=== PATIENT | male | born 1945 | race Caucasian/White ===

== ENCOUNTER 2016-10-18 07:57 | Day surgery (SDC) | payer MEDICARE ==
[2016-10-18] MEDS ORDERED: PROPOFOL 10 MG/ML VIAL IV ONE (15:10)
[2016-10-18] MEDS ORDERED: LIDOCAINE 2% MDV (20MG/ML) 20ML VIAL IV ONE (15:10)
[2016-10-18] MEDS ORDERED: MIDAZOLAM HCL 2MG/2ML VIAL IV ONE (15:10)
--- NOTE | 2016-10-19 18:10 | Operative Note ---
DATE OF SURGERY: 10/18/2016 OPERATION: COLONOSCOPY to the cecum with cold snare polypectomy x4. INDICATION: Colorectal cancer screening. The patient's last examination was 10 years ago. ANESTHESIA: Intravenous sedation was administered by the department of anesthesiology and included Diprivan titrated to effect. PROCEDURE: Following informed consent from this alert individual including a discussion of the risks and benefits of the procedure and an opportunity for the patient to ask questions, the patient was in the left lateral decubitus position. A digital rectal examination was performed. No abnormalities were noted. Following this, the Olympus [id number] video colonoscope was inserted into the rectum without resistance. The rectal mucosa had a normal appearance with normal folds and distensibility. The colonoscope was advanced up through the colon to the level of the cecum without much difficulty. Throughout the bowel the mucosa appeared normal, the folds were normal, and the bowel was fairly well distensible. The cecum was defined by noting the appendiceal orifice and ileocecal valve. In the cecum at the level of the ileocecal valve was a 5 mm polyp which was removed with cold snare polypectomy. A clip was placed as well to prevent bleeding. There was a second polyp in the transverse colon likewise measuring 5 mm in size also removed with cold snare polypectomy and retrieved. There were 2 polyps in the descending colon measuring 4 and 5 mm in size and each was removed with cold snare polypectomy and suctioned through the endoscope into a collection trap. No other abnormalities were detected. The colon preparation was good. Retroflexion of the rectum was endoscopically unremarkable. The endoscope was removed. The patient tolerated the procedure well and was returned to the recovery area in stable condition. IMPRESSION: Four colon polyps removed as described above with cold snare polypectomy. RECOMMENDATIONS: The patient was advised he should receive a copy of his pathology report at home in the next 2-3 weeks. If not, he was asked to call my office to review the results of testing today. Further recommendations may be forthcoming pending those results. Followup will also be with Dr. Kvng Aguayo. As always, thank you for allowing me to participate in the care of your patient. CC: Frandy SUTTON
== END 2016-10-18 09:43 | disposition home or self-care (01) ==
LOC: HOP 07:57
PROVIDERS: ATTEND Internal Medicine Gastroenterology
DX: Z12.11 Encounter for screening for malignant neoplasm of colon (principal); D12.0 Benign neoplasm of cecum; D12.3 Benign neoplasm of transverse colon; D12.4 Benign neoplasm of descending colon; I10 Essential (primary) hypertension; E78.00 Pure hypercholesterolemia, unspecified

== ENCOUNTER 2017-12-29 09:15 | Day surgery (SDC) | payer BC, MEDICARE ==
[2017-12-29] MEDS ORDERED: KETOROLAC 30 MG/ML VIAL IVP ONE (09:16)
[2017-12-29] MEDS ORDERED: FENTANYL PF 100MCG/2ML VIAL IV ONE (09:16)
[2017-12-29] MEDS ORDERED: CEFAZOLIN 2 Gram 2 GM/50 ML BAG IVPB ONE (09:16)
[2017-12-29] MEDS ORDERED: MIDAZOLAM HCL 2MG/2ML VIAL IV ONE (09:16)
[2017-12-29] MEDS ORDERED: LIDOCAINE 2% MDV (20MG/ML) 20ML VIAL IV ONE (09:16)
[2017-12-29] MEDS ORDERED: ACETAMINOPHEN 1,000 MG/100 ML BTL IV ONE (09:16)
[2017-12-29] MEDS ORDERED: PROPOFOL 10 MG/ML VIAL IV ONE (09:16)
[2017-12-29] MEDS ORDERED: SEVOFLURANE 250 ML INH ONE (09:16)
--- NOTE | 2017-12-30 10:50 | Operative Note ---
DATE OF SURGERY: 12/29/2017 Surgeon: Andrei Serrano DO PREOPERATIVE DIAGNOSIS: Carpal tunnel syndrome of the left wrist. POSTOPERATIVE DIAGNOSIS: Carpal tunnel syndrome of the left wrist. OPERATION: Decompression left median nerve at the wrist using 3.5 loop magnification. DESCRIPTION OF PROCEDURE: This 72-year-old male was taken to the operating room and placed in the supine position on the operating room table. General anesthesia was induced. The left upper extremity was elevated. It was prepped with Hibiclens and draped in the usual sterile fashion. It was exsanguinated and the tourniquet inflated to 250 mmHg. A palmar incision was utilized following the hypothenar crease and dissection carried down through the skin and subcutaneous tissue. Palmar fascia was divided in line with the skin incision. This exposed the flexor retinaculum which was punctured and split to its proximal margin. Then with the contents of carpal tunnel under direct vision, the transverse carpal ligament was transected along its ulnar border and the radial flap was raised to expose the entire median nerve under the transverse carpal ligament. The recurrent motor branch of the median nerve was identified and found to be normal. There was hyperemia of the nerve but it was otherwise normal to the naked eye. The wound was irrigated with lactated Ringer's solution, and the tourniquet was released. Hemostasis obtained with the electrocautery. The wound was closed with interrupted 6-0 nylon suture. Sterile dressings were applied with plastic splint immobilization with the wrist in slight dorsiflexion and the thumb in an adducted position. GROSS PATHOLOGY: This patient demonstrated mild hyperemia of the medial nerve but was otherwise normal to the naked eye. CC: Frandy SUTTON
== END 2017-12-29 11:27 | disposition home or self-care (01) ==
LOC: SUR 09:15
PROVIDERS: ATTEND Orthopaedic Surgery
DX: G56.02 Carpal tunnel syndrome, left upper limb (principal); I10 Essential (primary) hypertension; E78.00 Pure hypercholesterolemia, unspecified
CPT/HCPCS: 64721; 01810; 93005; J1885; J3010; J0690

== ENCOUNTER 2018-05-11 08:45 | Emergency (ER) | payer MEDICARE, BC ==
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
[2018-05-11 09:36] LABS: BASO % 0.4 % (0-6); EOS % 2.6 % (0-6); GRAN % 50.5 % (47-80); HEMATOCRIT 47.5 % (42.0-52.0); HEMOGLOBIN 16.2 gm/dl (14.0-18.0); LYMPH % 34.6 % (16-45); MEAN CELL VOLUME 91.3 fl (81-97); MEAN CORPUSCULAR HEMOGLOBIN 31.2 pg (27-33); MEAN CORPUSCULAR HGB CONC 34.1 g/dl (32-36); MEAN PLATELET VOLUME 10.5 fl (7.4-10.4); MONO % 11.9 % (0-9); PLATELET COUNT 175 K/uL (130-400); RED CELL DISTRIBUTION WIDTH 14.1 % (11.5-14.5); WHITE BLOOD COUNT W/O DIFF 5.5 K/uL (4.2-12.2)
[2018-05-11 09:47] LABS: INR 1.1; PARTIAL THROMBOPLASTIN TIME 31.3 SECONDS (24.5-39.1); PROTHROMBIN TIME (PATIENT) 10.6 SECONDS (9.5-12.1)
[2018-05-11 09:50] LABS: BLOOD UREA NITROGEN 14 mg/dL (8-23); CREATININE 1.1 mg/dL (0.7-1.2); EST GLOMERULAR FILTRATION RATE > 60 mL/min; TOTAL PROTEIN 6.9 g/dL (6.6-8.7)
[2018-05-11 09:52] LABS: GLUCOSE,RANDOM 102 mg/dL (74-109)
[2018-05-11 09:55] LABS: ALB/GLOB RATIO 1.6 (1.1-1.8); ALBUMIN 4.2 g/dL (4.0-5.0); ALKALINE PHOSPHATASE 72 U/L (40-129); ALT/SGPT 33 U/L (<41); AST/SGOT 24 U/L (10.0-50.0)
[2018-05-11 10:42] LABS: ABO GROUP O; ANTIBODY SCREEN NEGATIVE (NEGATIVE); RH TYPE NEGATIVE
== END 2018-05-11 10:39 | disposition home or self-care (01) ==
LOC: ER 08:45
DX: K92.1 Melena (principal); I10 Essential (primary) hypertension; Z87.891 Personal history of nicotine dependence; Z85.528 Personal history of other malignant neoplasm of kidney
CPT/HCPCS: 80053; 85025; 85610; 85730; 86850; 86900; 86901; 99283; 99284

== ENCOUNTER 2018-05-17 11:48 | Day surgery (SDC) | payer MEDICARE, BC ==
--- NOTE | 2018-05-17 06:58 | History and Physical - [place] ---
CHIEF COMPLAINT/HISTORY OF CHIEF COMPLAINT: This patient presents with a history of an intractable lumbar radiculopathy. Due to the failure of therapy and the successful spinal cord stimulator trial, permanent implant performed on 12/10/15 although over the years the system has worked quite well there has been a pattern of change of his pain moving somewhat laterally and inferiorly more than previous. Multiple attempts at reprogramming the system to control this new area of pain was somewhat limited. With the availability of the new generator which provides more programmability and greater functionality, it was felt appropriate to change the generator of the current system to help keep up with the changing pattern of his pain. He is here for a generator change without lead revision. PAST MEDICAL HISTORY: Hypothyroidism and hypertension. PAST SURGICAL HISTORY: Thyroid surgery. MEDICATIONS ON ADMISSION: List to be provided. ALLERGIES: None. FAMILY/PSYCHOSOCIAL HISTORY: Social history - Noncontributory. Family history - Cancer. SYSTEMS REVIEW: The patient is appropriate in no acute distress. The remainder of the systems review is positive for thyroid cancer and blood pressure problems. PHYSICAL EXAMINATION: Height is 5'11", weight is 300 pounds. No vital signs. HEENT: Within normal limits. LUNGS: Clear. HEART: Rapid and regular. ABDOMEN: Nontender. MUSCULOSKELETAL: Examination of the musculoskeletal system shows the midline incision for the leads intact. The generator pouch at the left posterior gluteal margin is noted and intact. Primary pain pattern is low back with a bilateral lower extremity extension. There is pain extensively along multiple dermatomes. No appreciable motor or sensory weakness. Ambulation - No assistive device utilized. NEUROLOGIC: Cranial nerves are intact. IMPRESSION: 1. LUMBAR RADICULOPATHY, ICD-10 CODE M54.16 AND M54.17. 2. SPINAL CORD STIMULATOR AND INTERNAL GENERATOR. PLAN: The patient is here for removal and replacement of the generator on an outpatient basis. The risks, side effects and complications have been reviewed and discussed. Information was provided by the carriage feeder. Direct contact with clinical specialist was provided. The procedure will be considered outpatient, an overnight stay will not be necessary. JOB NUMBER: [id number] MTDD
[~2018-05-17 11:48] MED LIST: ACETAMINOPHEN 1,000 MG/100 ML BTL IV ONE; CEFAZOLIN 1 Gram 1 GM/50 ML BAG IVPB ONE; CEFAZOLIN 2 Gram 2 GM/50 ML BAG IVPB ONE; FAMOTIDINE 20MG TABLET PO ONE; MECLIZINE 25 MG TABLET PO ONE; VANCOMYCIN HCL 1,000 MG in DEXTROSE 5 % IN WATER 250 ML IVPB ONE
[2018-05-17] MEDS ORDERED: BUPIVACAINE 0.5% W/EPI MPF 30 ML VIAL IVP ONE (11:49)
[2018-05-17] MEDS ORDERED: METOCLOPRAMIDE 10 MG TABLET PO ONE (11:49)
[2018-05-17] MEDS ORDERED: LIDOCAINE 1% W/EPI 1:200,000 MPF 30ML SQ ONE (11:49)
[2018-05-17] MEDS ORDERED: 0.9 % SODIUM CHLORIDE 10 ML VIAL IVP ONE (11:49)
[2018-05-17] MEDS ORDERED: KETAMINE HCL 100MG/1ML VIAL INJ ONE (11:49)
[2018-05-17] MEDS ORDERED: MIDAZOLAM HCL 2MG/2ML VIAL IV ONE (11:49)
[2018-05-17] MEDS ORDERED: RINGERS SOLUTION,LACTATED 600 ML IV ONE (14:17)
--- NOTE | 2018-05-19 16:18 | Operative Note ---
DATE: 05/17/2018. PRIMARY CARE PHYSICIAN: Kvng Aguayo D.O. PREOPERATIVE DIAGNOSIS: 1. INTRACTABLE LUMBAR RADICULOPATHY, ICD-10 CODE M54.16 AND M54.17. 2. SPINAL CORD STIMULATOR INTERNAL GENERATOR NONFUNCTIONAL. POSTOPERATIVE DIAGNOSIS: 1. INTRACTABLE LUMBAR RADICULOPATHY, ICD-10 CODE M54.16 AND M54.17. 2. SPINAL CORD STIMULATOR INTERNAL GENERATOR NONFUNCTIONAL. PROCEDURE: Fluoroscopically guided incision, subcutaneous dissection, and removal and replacement of internal pulse generator at left posterior gluteal margin with [employer] WaveWriter generator. SURGEON: Bunny Alejo D.O. ANESTHESIA: Local sedation. ANESTHESIA PROVIDER: Linda Pink CRNA. INDICATIONS: This patient presents with a history of intractable lumbar radiculopathy. A spinal cord stimulator internal generator had been placed previously which appeared to be doing quite well until his pain started to move and change. As his pain migrated more laterally and up higher into his spine, the current system, which was placed for a lower extremity component, was unable to keep up with the pain. Despite multiple reprogramming efforts, he continued to have breakthrough pain in these new areas. It was decided that the new WaveWriter generator released by [employer] with multiple programming options which were previously not available, would provide us with a mechanism to control his pain. DESCRIPTION OF PROCEDURE: Intravenous line, vital sign monitoring, and intravenous sedation. Prepped and draped with sterile technique with the patient positioned prone. Sterile prep at the left posterior gluteal margin generator pouch. The skin was infiltrated and an incision was made. Subcutaneous dissection was conducted to the generator pouch. The pouch was opened, and the generator was exteriorized. It was then from the indwelling leads. The new generator was placed onto the field and interfaced with the existing leads. Antibiotic irrigation and Bovie for hemostasis. The system was checked for impedance readings and functionality. The incision was then closed using Stratafix suture; #2-0 for the fascia and #3-0 for the skin. Dermabond closure. He was transported to the recovery room stable with no side effects from the procedure or the sedation. When fully awake and alert complex programming of the system was performed over 20 minutes, re-establishing stimulation. He was instructed in the use of the system and was provided information regarding error messaging. He was then prepared for discharge. DISCHARGE INSTRUCTIONS: 1. The sites are to remain clean and dry. He may shower with the Dermabond but he may not sit in water or tubs. 2. Standard medications to be resumed including the antibiotic Levaquin 500 mg once a day for 14 days. 3. The office will contact the patient in 12 to 24 hours to set up an appointment within the next seven to ten days to evaluate the sites. Until then activities should stay controlled; limit bend, lift, push, and pull. 4. All other instructions were provided including numbers to contact with problems. He was then discharged. JOB NUMBER: [id number] cc: Frandy Sin
== END 2018-05-17 15:01 | disposition home or self-care (01) ==
LOC: SUR 11:48
PROVIDERS: ATTEND Pain Medicine Interventional Pain Medicine
DX: M54.16 Radiculopathy, lumbar region (principal); M54.17 Radiculopathy, lumbosacral region; I10 Essential (primary) hypertension; E78.00 Pure hypercholesterolemia, unspecified; G25.81 Restless legs syndrome; G62.9 Polyneuropathy, unspecified; K21.9 Gastro-esophageal reflux disease without esophagitis; R60.9 Edema, unspecified; K62.5 Hemorrhage of anus and rectum; Z85.528 Personal history of other malignant neoplasm of kidney; Z85.850 Personal history of malignant neoplasm of thyroid; Z86.14 Personal history of Methicillin resistant Staphylococcus aureus infection
CPT/HCPCS: 63685; 00300; J3370; J3490; C1820; J7060; J7120